=== PATIENT | male | born 1940 | race Caucasian/White ===

== ENCOUNTER 2024-03-29 09:03 | Emergency (ER) | payer MEDICARE, OTHER ==
[~2024-03-29] VITALS: Ht 175.3 cm; Wt 59.4 kg
[2024-03-29 09:15] VITALS: BP 164/76; TEMP 98
[2024-03-29] MEDS ORDERED: IBUPROFEN 600 MG TABLET ONE (09:28)
[2024-03-29] MEDS: IBUPROFEN 600 MG TABLET PO ONE (09:30)
[2024-03-29] MEDS ORDERED: NAPR-1009 PO (10:37)
[2024-03-29 11:31] VITALS: O2SAT 100
== END 2024-03-29 11:32 | disposition home or self-care (01) ==
LOC: ER 09:09
DX: M54.50 Low back pain, unspecified (principal); I10 Essential (primary) hypertension
CPT/HCPCS: 72100-TC

== ENCOUNTER 2024-05-19 09:16 | Emergency (ER) | payer MEDICARE, OTHER ==
[~2024-05-19] VITALS: Ht 182.9 cm; Wt 68.0 kg
[2024-05-19] MEDS ORDERED: HYDROCODONE/APAP 5/325MG TABLET ONE (10:01)
[2024-05-19] MEDS: HYDROCODONE/APAP 5/325MG TABLET PO ONE (10:05)
[2024-05-19 10:29] VITALS: BP 110/60; TEMP 98.4; O2SAT 98
== END 2024-05-19 10:30 | disposition home or self-care (01) ==
LOC: ER 09:20
DX: G89.29 Other chronic pain (principal); M54.50 Low back pain, unspecified; I10 Essential (primary) hypertension

== ENCOUNTER 2025-05-15 07:46 | Inpatient (IN) | payer MEDICARE, OTHER ==
[~2025-05-15] VITALS: Ht 167.6 cm; Wt 57.2 kg
[2025-05-15 08:12] LABS: PLATELET COUNT (AUTO) 211 K/uL (150-450); RED BLOOD CELL COUNT(AUTO) 4.69 MIL/uL (4.5-6.0); RED CELL DISTRIBUTION WIDTH 14.6 % (11.5-15.0); WHITE BLOOD COUNT (AUTO) 11.3 K/uL (4.3-11.0)
[2025-05-15 08:21] LABS: CALCIUM, SERUM 8.9 mg/dL (8.5-10.1); CREATININE 1.5 mg/dL (0.6-1.3); SODIUM SERUM 138 mmol/L (136-145); UREA NITROGEN, BLOOD 22 mg/dL (7-18)
[2025-05-15 08:27] LABS: ASPARTATE AMINOTRANSFERASE 28 U/L (15-37); TOTAL PROTEIN, SERUM 7.0 g/dL (6.4-8.2)
[2025-05-15 08:28] LABS: INR 1.35 (0.91-1.10)
[2025-05-15 08:31] LABS: LACTIC ACID 10.6 mmol/L (0.4-2.0)
[2025-05-15] MEDS ORDERED: ASPIRIN EC 325 MG TABLET.DR PO ONE (08:37)
[2025-05-15 08:42] LABS: ABG BASE EXCESS -0.4 mmol/L (-2.0-3.0); ABG OXYGEN SATURATION 95.5 % (94.0-98.0); ABG PCO2 39.2 mmHg (35.0-48.0); ABG PH 7.407 (7.350-7.450); ABG PO2 84.7 mmHg (83.0-108.0); ABG TOTAL HEMOGLOBIN 13.6 G/dL (13.5-17.5); FLOW, BLOOD GAS 4.00 L/min (0.00-30.00); FRACTIONATED INSPIRED OXYGEN 36.0 %; SITE, ABG RIGHT RADIAL
[2025-05-15] MEDS: CEFTRIAXONE 1 G in IV D5W 50 ML IV ONE (08:43)
[2025-05-15] MEDS: IV NS 0.9% 500 ML IV ONE (08:51)
[2025-05-15] MEDS: ASPIRIN 325 MG TABLET PO ONE (08:52)
[2025-05-15] MEDS ORDERED: CEFTRIAXONE 1GM BAG (ER ONLY) 1 GM/50 ML PIGGYBACK IV ONE (09:00)
[2025-05-15] MEDS ORDERED: ONDANSETRON HCL/PF 4 MG/2 ML VIAL IVP PRN (09:00)
[2025-05-15] MEDS ORDERED: CEFEPIME 1 GM in IV D5W 50 ML IV ONE (09:00)
[2025-05-15] MEDS ORDERED: AZITHROMYCIN 500 MG in IV D5W 250 ML IV SCH (09:00)
[2025-05-15 09:03] LABS: LYMPHOCYTES % (MANUAL) 11 % (16-48); MONOCYTES % (MANUAL) 8 % (0-11.0); NEUTROPHILS % (MANUAL) 81 (42-76); PLATELET ESTIMATE ADEQUATE
[2025-05-15] MEDS: AZITHROMYCIN 500 MG in IV D5W 250 ML IV ONE (09:15)
[2025-05-15] MEDS: IV NS 0.9% 1,000 ML IV SCH (10:19)
[2025-05-15] MEDS: HEPARIN SODIUM, PORCINE 5000 UNITS/1 ML VIAL SQ SCH (10:20)
[2025-05-15 12:00] VITALS: BP 105/51; TEMP 97.2; O2SAT 98
[2025-05-15 16:00] VITALS: BP 96/48; TEMP 97.9; O2SAT 95
[2025-05-15] MEDS: FUROSEMIDE 40 MG/4 ML VIAL IV SCH (16:00)
[2025-05-15] MEDS: IPRATROPIUM NEB FS 0.5 MG/2.5 ML AMPUL.NEB NEB SCH (18:50)
[2025-05-15] MEDS: ALBUTEROL FS 2.5 MG/3 ML VIAL.NEB NEB SCH (18:50)
[2025-05-15 20:00] VITALS: BP 151/68; TEMP 98.2; O2SAT 92
[2025-05-15 20:14] VITALS: O2SAT 93
[2025-05-15 20:28] VITALS: O2SAT 96
[2025-05-16] VITALS (14 sets, daily range): BP systolic 128–159; BP diastolic 71–83; TEMP 97.5–99; O2SAT 91–97
[2025-05-16 02:27] LABS: ABG BASE EXCESS 2.3 mmol/L (-2.0-3.0); ABG OXYGEN SATURATION 93.4 % (94.0-98.0); ABG PCO2 35.6 mmHg (35.0-48.0); ABG PH 7.475 (7.350-7.450); ABG PO2 65.3 mmHg (83.0-108.0); ABG TOTAL HEMOGLOBIN 14.1 G/dL (13.5-17.5); FLOW, BLOOD GAS 6.00 L/min (0.00-30.00); FRACTIONATED INSPIRED OXYGEN 44.0 %; SITE, ABG LEFT RADIAL
[2025-05-16] MEDS: AMIODARONE 150 MG in IV D5W 100 ML IV ONE (02:40)
[2025-05-16] MEDS: AMIODARONE 450 MG in IV D5W 241 ML IV PRN (03:03)
[2025-05-16 07:01] LABS: APPEARANCE,URINE CLEAR (CLEAR); BLOOD, URINE TRACE-INTA Ery/uL (NEGATIVE); LEUKOCYTE ESTERASE ,URINE NEGATIVE (NEGATIVE); NITRITE, URINE NEGATIVE (NEGATIVE); UGLUCOSE NEGATIVE (NEGATIVE)
[2025-05-16 07:02] LABS: ADD URINE CULTURE NO; SQUAMOUS EPITHELIAL CELL,UR Few /HPF (None Seen)
[2025-05-16 07:09] LABS: PLATELET COUNT (AUTO) 218 K/uL (150-450); RED BLOOD CELL COUNT(AUTO) 4.41 MIL/uL (4.5-6.0); RED CELL DISTRIBUTION WIDTH 14.1 % (11.5-15.0); WHITE BLOOD COUNT (AUTO) 12.5 K/uL (4.3-11.0)
[2025-05-16 07:28] LABS: ASPARTATE AMINOTRANSFERASE 23.0 U/L (15-37); CALCIUM, SERUM 8.5 mg/dL (8.5-10.1); CREATININE 0.7 mg/dL (0.6-1.3); PHOSPHORUS 3.0 mg/dL (2.5-4.9); SODIUM SERUM 140.0 mmol/L (136-145); TOTAL PROTEIN, SERUM 6.3 g/dL (6.4-8.2); UREA NITROGEN, BLOOD 19.0 mg/dL (7-18)
[2025-05-16] MEDS: POTASSIUM CHLORIDE 20 MEQ TAB.PRT.SR PO SCH (09:03)
[2025-05-16] MEDS: FUROSEMIDE 40 MG/4 ML VIAL IV SCH (09:03)
[2025-05-16] MEDS: CEFTRIAXONE 1 G in IV D5W 50 ML IV SCH (09:03)
[2025-05-16] MEDS: ZITHROMAX 500 MG/250 ML D5W IV SCH (10:02)
[2025-05-16] MEDS ORDERED: ALFU10TA10 PO (12:52)
[2025-05-16] MEDS ORDERED: LATA2.5D15 LEFTEYE (12:52)
[2025-05-16] MEDS ORDERED: OXYB15TA19 PO (12:52)
[2025-05-16] MEDS ORDERED: TELM40TA8 PO (12:52)
[2025-05-16] MEDS ORDERED: RIVA15TA PO (12:52)
[2025-05-16 13:42] LABS: CREATININE, URINE 14.0 MG/DL (30.0-125.0); URINE SODIUM, RANDOM 108.0 mmol/l (40-220); URINE TOTAL PROTEIN 14.7 mg/dL (0-11.9)
[2025-05-16 19:19] LABS: ABG BASE EXCESS 6.4 mmol/L (-2.0-3.0); ABG OXYGEN SATURATION 89.0 % (94.0-98.0); ABG PCO2 40.9 mmHg (35.0-48.0); ABG PH 7.488 (7.350-7.450); ABG PO2 53.9 mmHg (83.0-108.0); ABG TOTAL HEMOGLOBIN 14.4 G/dL (13.5-17.5); FLOW, BLOOD GAS 10.00 L/min (0.00-30.00); FRACTIONATED INSPIRED OXYGEN 60.0 %; SITE, ABG LEFT BRACHIAL
[2025-05-16] MEDS: hydrALAZINE HCL IV 20 MG VIAL IV PRN (21:48)
[2025-05-16] MEDS: FUROSEMIDE 40 MG/4 ML VIAL IV ONE (23:37)
[2025-05-17] VITALS (34 sets, daily range): BP systolic 112–176; BP diastolic 55–103; TEMP 97.5–98.4; O2SAT 88–99
[2025-05-17 07:44] LABS: PLATELET COUNT (AUTO) 257 K/uL (150-450); RED BLOOD CELL COUNT(AUTO) 4.93 MIL/uL (4.5-6.0); RED CELL DISTRIBUTION WIDTH 14.2 % (11.5-15.0); WHITE BLOOD COUNT (AUTO) 15.8 K/uL (4.3-11.0)
[2025-05-17 07:46] LABS: ABG BASE EXCESS 8.2 mmol/L (-2.0-3.0); ABG OXYGEN SATURATION 97.9 % (94.0-98.0); ABG PCO2 45.3 mmHg (35.0-48.0); ABG PH 7.479 (7.350-7.450); ABG PO2 103.4 mmHg (83.0-108.0); ABG TOTAL HEMOGLOBIN 14.9 G/dL (13.5-17.5); FLOW, BLOOD GAS 15.00 L/min (0.00-30.00); FRACTIONATED INSPIRED OXYGEN 100.0 %; SITE, ABG RIGHT RADIAL
[2025-05-17 08:14] LABS: ASPARTATE AMINOTRANSFERASE 24.0 U/L (15-37); CALCIUM, SERUM 9.1 mg/dL (8.5-10.1); CREATININE 0.8 mg/dL (0.6-1.3); PHOSPHORUS 3.0 mg/dL (2.5-4.9); SODIUM SERUM 138.0 mmol/L (136-145); TOTAL PROTEIN, SERUM 7.1 g/dL (6.4-8.2); UREA NITROGEN, BLOOD 16.0 mg/dL (7-18)
[2025-05-17] MEDS: AMIODARONE HCL 200 MG TABLET PO SCH (09:48)
[2025-05-17] MEDS: ENOXAPARIN SODIUM 60 MG/0.6 ML DISP.SYRIN SQ SCH (11:47)
[2025-05-17] MEDS ORDERED: DOSING PER PHARMACY-CEFEPIME IVPB IV PRN (17:30)
[2025-05-17] MEDS ORDERED: DOSING PER PHARMACY-VANCOMYCIN IV IV PRN (17:30)
[2025-05-17] MEDS: VANCOMYCIN 1 GM in IV D5W 250ml IV ONE (20:01)
[2025-05-17] MEDS: CEFEPIME 2 GM in IV D5W 100 ML IV SCH (21:30)
[2025-05-17] MEDS: ZOLPIDEM TARTRATE 10 MG TABLET PO SCH (22:00)
[2025-05-17] MEDS: MORPHINE SULFATE INJ 2 MG/ML DISP.SYRIN IV PRN (22:06)
[2025-05-18] VITALS (40 sets, daily range): BP systolic 106–168; BP diastolic 52–78; TEMP 97.7–99.3; O2SAT 92–98
[2025-05-18] MEDS: ZOLPIDEM TARTRATE 10 MG TABLET ONE (00:39)
[2025-05-18 04:57] LABS: CALCIUM, SERUM 8.7 mg/dL (8.5-10.1); CREATININE 0.7 mg/dL (0.6-1.3); SODIUM SERUM 133 mmol/L (136-145); UREA NITROGEN, BLOOD 19 mg/dL (7-18)
[2025-05-18 05:03] LABS: LACTIC ACID 1.2 mmol/L (0.4-2.0)
[2025-05-18 05:09] LABS: ASPARTATE AMINOTRANSFERASE 19 U/L (15-37); NT-PRO BNP 3179 pg/mL (0-125); PHOSPHORUS 2.7 mg/dL (2.5-4.9); TOTAL PROTEIN, SERUM 6.2 g/dL (6.4-8.2)
[2025-05-18] MEDS: ALBUTEROL FS 2.5 MG/0.5 ML VIAL.NEB NEB PRN (07:28)
[2025-05-18 07:58] LABS: PLATELET COUNT (AUTO) 245 K/uL (150-450); RED BLOOD CELL COUNT(AUTO) 4.54 MIL/uL (4.5-6.0); RED CELL DISTRIBUTION WIDTH 14.5 % (11.5-15.0); WHITE BLOOD COUNT (AUTO) 14.3 K/uL (4.3-11.0)
[2025-05-18] MEDS: VANCOMYCIN 750 MG in IV D5W 250 ML IV SCH (08:34)
[2025-05-18] MEDS ORDERED: DIATR MEGLU/DIATRIZOATE SODIUM 120 ML BOTTLE (GASTROGRAPHIN) ONE (10:56)
[2025-05-18 16:20] LABS: HIV-1/2 ANTIBODY NON REACTIVE (NONREACTIVE)
[2025-05-18] MEDS: ZOLPIDEM TARTRATE 5 MG TABLET PO SCH (22:14)
[2025-05-19] VITALS (39 sets, daily range): BP systolic 118–149; BP diastolic 55–78; TEMP 97.5–97.8; O2SAT 94–98
[2025-05-19 04:34] LABS: PLATELET COUNT (AUTO) 239 K/uL (150-450); RED BLOOD CELL COUNT(AUTO) 4.88 MIL/uL (4.5-6.0); RED CELL DISTRIBUTION WIDTH 14.0 % (11.5-15.0); WHITE BLOOD COUNT (AUTO) 15.7 K/uL (4.3-11.0)
[2025-05-19 04:56] LABS: ASPARTATE AMINOTRANSFERASE 40.0 U/L (15-37); CALCIUM, SERUM 8.9 mg/dL (8.5-10.1); CREATININE 0.7 mg/dL (0.6-1.3); SODIUM SERUM 130.0 mmol/L (136-145); TOTAL PROTEIN, SERUM 6.7 g/dL (6.4-8.2); UREA NITROGEN, BLOOD 24.0 mg/dL (7-18)
[2025-05-19] MEDS: BISACODYL SUPP (10 MG) 10 MG/SUPP.RECT SUPP.RECT RC PRN (11:57)
[2025-05-19] MEDS: FUROSEMIDE 20 MG/2 ML VIAL IV SCH (11:57)
[2025-05-20] VITALS (40 sets, daily range): BP systolic 123–166; BP diastolic 62–81; TEMP 97.5–97.8; O2SAT 92–100
[2025-05-20 04:23] LABS: PLATELET COUNT (AUTO) 248 K/uL (150-450); RED BLOOD CELL COUNT(AUTO) 4.88 MIL/uL (4.5-6.0); RED CELL DISTRIBUTION WIDTH 14.5 % (11.5-15.0); WHITE BLOOD COUNT (AUTO) 17.2 K/uL (4.3-11.0)
[2025-05-20 04:49] LABS: ASPARTATE AMINOTRANSFERASE 25.0 U/L (15-37); CALCIUM, SERUM 8.9 mg/dL (8.5-10.1); CREATININE 0.8 mg/dL (0.6-1.3); PHOSPHORUS 3.3 mg/dL (2.5-4.9); SODIUM SERUM 132.0 mmol/L (136-145); TOTAL PROTEIN, SERUM 6.6 g/dL (6.4-8.2); UREA NITROGEN, BLOOD 33.0 mg/dL (7-18)
[2025-05-20 13:07] LABS: *ANA ANTI-CENTROMERE B AB <0.2 AI (0.0-0.9); *ANA ANTI-DNA(DS) AB, QN <1 IU/mL (0-9); *ANA ANTI-JO-1 <0.2 AI (0.0-0.9); *ANA ANTICHROMATIN ANTIBODY <0.2 AI (0.0-0.9); *ANA RNP ANTIBODIES <0.2 AI (0.0-0.9); *ANA SJOGREN'S ANTI-SS-A <0.2 AI (0.0-0.9); *ANA SJOGREN'S ANTI-SS-B <0.2 AI (0.0-0.9); *ANAANTI-SCLERODERMA-70 AB 0.4 AI (0.0-0.9); *ANASMITH AB <0.2 AI (0.0-0.9)
[2025-05-20] MEDS: AZITHROMYCIN 500 MG in IV D5W 250 ML IV SCH (16:38)
[2025-05-20] MEDS: JEVITY 1.2 CAL 1,000 ML BOTTLE GT PRN (17:06)
[2025-05-20] MEDS ORDERED: IOHEXOL-350 100 ML VIAL IV ONE (18:45)
[2025-05-20 19:38] LABS: PLATELET COUNT (AUTO) 267 K/uL (150-450); RED BLOOD CELL COUNT(AUTO) 4.75 MIL/uL (4.5-6.0); RED CELL DISTRIBUTION WIDTH 14.1 % (11.5-15.0); WHITE BLOOD COUNT (AUTO) 19.5 K/uL (4.3-11.0)
[2025-05-20 19:54] LABS: INR 1.13 (0.91-1.10)
[2025-05-20 19:56] LABS: CALCIUM, SERUM 8.6 mg/dL (8.5-10.1); CREATININE 0.8 mg/dL (0.6-1.3); SODIUM SERUM 131 mmol/L (136-145); UREA NITROGEN, BLOOD 34 mg/dL (7-18)
[2025-05-20] MEDS: ASPIRIN 325 MG TABLET NG ONE (20:10)
[2025-05-20] MEDS: FREE WATER VIA TUBE FEEDING GT SCH (21:03)
[2025-05-20 21:20] LABS: LYMPHOCYTES % (MANUAL) 7 % (16-48); MONOCYTES % (MANUAL) 9 % (0-11.0); NEUTROPHILS % (MANUAL) 84 (42-76); PLATELET ESTIMATE ADEQUATE
[2025-05-20] MEDS: AMIODARONE 150 MG/3 ML VIAL IV ONE ×2 (22:56→22:57)
[2025-05-21] VITALS (37 sets, daily range): BP systolic 149–175; BP diastolic 62–95; TEMP 97–97.9; O2SAT 91–100
[2025-05-21 04:44] LABS: PLATELET COUNT (AUTO) 285 K/uL (150-450); RED BLOOD CELL COUNT(AUTO) 4.85 MIL/uL (4.5-6.0); RED CELL DISTRIBUTION WIDTH 14.1 % (11.5-15.0); WHITE BLOOD COUNT (AUTO) 19.5 K/uL (4.3-11.0)
[2025-05-21 05:01] LABS: CALCIUM, SERUM 9.3 mg/dL (8.5-10.1); CREATININE 0.8 mg/dL (0.6-1.3); SODIUM SERUM 130.0 mmol/L (136-145); UREA NITROGEN, BLOOD 33.0 mg/dL (7-18)
[2025-05-21 05:07] LABS: LDL 77 mg/dL (0-99)
[2025-05-21 05:44] LABS: LYMPHOCYTES % (MANUAL) 3 % (16-48); MONOCYTES % (MANUAL) 12 % (0-11.0); NEUTROPHILS % (MANUAL) 85 (42-76)
[2025-05-21 05:50] LABS: PLATELET ESTIMATE ADEQUATE
[2025-05-21] MEDS: ASPIRIN 81 MG TAB.CHEW NG SCH (08:18)
[2025-05-21 09:38] LABS: ABG BASE EXCESS 7.7 mmol/L (-2.0-3.0); ABG OXYGEN SATURATION 98.6 % (94.0-98.0); ABG PCO2 48.6 mmHg (35.0-48.0); ABG PH 7.450 (7.350-7.450); ABG PO2 140.6 mmHg (83.0-108.0); ABG TOTAL HEMOGLOBIN 14.4 G/dL (13.5-17.5); FLOW, BLOOD GAS 40.00 L/min (0.00-30.00); FRACTIONATED INSPIRED OXYGEN 80.0 %; SITE, ABG RIGHT RADIAL
[2025-05-21] MEDS: VANCOMYCIN 750 MG in IV D5W 250 ML IV SCH (12:28)
[2025-05-21 15:07] LABS: ASPERGILLUS GAL. Ag, SERUM/BAL 0.06 Index (0.00-0.49)
[2025-05-21] MEDS ORDERED: DIATR MEGLU/DIATRIZOATE SODIUM 120 ML BOTTLE (GASTROGRAPHIN) ONE (16:15)
[2025-05-21] MEDS ORDERED: IOHEXOL-300 100 ML VIAL IV ONE (18:40)
[2025-05-21] MEDS ORDERED: IV NS 0.9% 250 ML IV ONE (18:40)
[2025-05-21] MEDS: APIXABAN 5 MG TABLET PO SCH (22:14)
[2025-05-22] VITALS (37 sets, daily range): BP systolic 108–179; BP diastolic 61–90; TEMP 98–98.8; O2SAT 91–99
[2025-05-22] MEDS: CLONIDINE HCL 0.1 MG TABLET PO PRN (03:40)
[2025-05-22 05:25] LABS: PLATELET COUNT (AUTO) 244 K/uL (150-450); RED BLOOD CELL COUNT(AUTO) 4.94 MIL/uL (4.5-6.0); RED CELL DISTRIBUTION WIDTH 14.1 % (11.5-15.0); WHITE BLOOD COUNT (AUTO) 19.5 K/uL (4.3-11.0)
[2025-05-22 05:50] LABS: CALCIUM, SERUM 8.6 mg/dL (8.5-10.1); CREATININE 0.6 mg/dL (0.6-1.3); SODIUM SERUM 135.0 mmol/L (136-145); UREA NITROGEN, BLOOD 28.0 mg/dL (7-18)
[2025-05-22] MEDS: LOSARTAN POTASSIUM 50 MG TABLET PO SCH (08:47)
[2025-05-22] MEDS: CEFEPIME 2 GM in IV D5W 100 ML IV SCH (15:32)
[2025-05-22 18:56] LABS: RHEUMATOID FACTOR SCREEN NEGATIVE (NEGATIVE)
[2025-05-22] MEDS: hydrALAZINE HCL IV 20 MG VIAL IV PRN (23:14)
[2025-05-23] VITALS (38 sets, daily range): BP systolic 134–175; BP diastolic 48–89; TEMP 97–98.2; O2SAT 92–99
[2025-05-23 00:05] LABS: ABG BASE EXCESS 5.6 mmol/L (-2.0-3.0); ABG OXYGEN SATURATION 93.9 % (94.0-98.0); ABG PCO2 35.9 mmHg (35.0-48.0); ABG PH 7.517 (7.350-7.450); ABG PO2 71.7 mmHg (83.0-108.0); ABG TOTAL HEMOGLOBIN 15.0 G/dL (13.5-17.5); FLOW, BLOOD GAS 40.00 L/min (0.00-30.00); FRACTIONATED INSPIRED OXYGEN 100.0 %; SITE, ABG RIGHT RADIAL
[2025-05-23 04:07] LABS: PLATELET COUNT (AUTO) 238 K/uL (150-450); RED BLOOD CELL COUNT(AUTO) 5.01 MIL/uL (4.5-6.0); RED CELL DISTRIBUTION WIDTH 14.3 % (11.5-15.0); WHITE BLOOD COUNT (AUTO) 24.1 K/uL (4.3-11.0)
[2025-05-23 04:18] LABS: CALCIUM, SERUM 9.0 mg/dL (8.5-10.1); CREATININE 0.8 mg/dL (0.6-1.3); PHOSPHORUS 2.9 mg/dL (2.5-4.9); SODIUM SERUM 136.0 mmol/L (136-145); UREA NITROGEN, BLOOD 30.0 mg/dL (7-18)
[2025-05-23] MEDS: PANTOPRAZOLE 40 MG/PACK PACK GT SCH (08:23)
[2025-05-23] MEDS ORDERED: RIVAROXABAN 15 MG TABLET PO SCH (09:00)
[2025-05-23] MEDS: OXYBUTYNIN CHLORIDE ER 5 MG TAB PO SCH (09:00)
[2025-05-23] MEDS ORDERED: LOSARTAN POTASSIUM 50 MG TABLET PO SCH (09:00)
[2025-05-23] MEDS ORDERED: TRAZODONE 50 MG TABLET PO PRN (10:30)
[2025-05-23] MEDS: FUROSEMIDE 20 MG/2 ML VIAL IV ONE (11:42)
[2025-05-23] MEDS: DOXYCYCLINE 100 MG in IV D5W 100 ML IV SCH (15:55)
[2025-05-23] MEDS: APIXABAN 5 MG TABLET PO SCH (21:03)
[2025-05-23] MEDS: LATANOPROST EYE DROP 0.005% 2.5 ML BOTTLE LEFTEYE SCH (21:14)
[2025-05-24] VITALS (39 sets, daily range): BP systolic 136–177; BP diastolic 64–88; TEMP 97.2–97.8; O2SAT 5–99
[2025-05-24 03:53] LABS: PLATELET COUNT (AUTO) 263 K/uL (150-450); RED BLOOD CELL COUNT(AUTO) 4.82 MIL/uL (4.5-6.0); RED CELL DISTRIBUTION WIDTH 14.2 % (11.5-15.0); WHITE BLOOD COUNT (AUTO) 24.7 K/uL (4.3-11.0)
[2025-05-24 04:03] LABS: ASPARTATE AMINOTRANSFERASE 27.0 U/L (15-37); CALCIUM, SERUM 9.4 mg/dL (8.5-10.1); CREATININE 0.8 mg/dL (0.6-1.3); PHOSPHORUS 3.2 mg/dL (2.5-4.9); SODIUM SERUM 138.0 mmol/L (136-145); TOTAL PROTEIN, SERUM 6.7 g/dL (6.4-8.2); UREA NITROGEN, BLOOD 45.0 mg/dL (7-18)
[2025-05-24 05:10] LABS: LYMPHOCYTES % (MANUAL) 2 % (16-48); MONOCYTES % (MANUAL) 4 % (0-11.0); NEUTROPHILS % (MANUAL) 94 (42-76)
[2025-05-24 05:13] LABS: PLATELET ESTIMATE ADEQUATE
[2025-05-24] MEDS: FUROSEMIDE 20 MG/2 ML VIAL IV SCH (08:17)
[2025-05-24] MEDS: ACETYLCYSTEINE 20% SOLN 800 MG/4 ML VIAL NEB SCH (15:30)
[2025-05-25] VITALS (40 sets, daily range): BP systolic 87–163; BP diastolic 56–80; TEMP 96.8–98.6; O2SAT 93–100
[2025-05-25 03:48] LABS: PLATELET COUNT (AUTO) 269 K/uL (150-450); RED BLOOD CELL COUNT(AUTO) 4.80 MIL/uL (4.5-6.0); RED CELL DISTRIBUTION WIDTH 14.7 % (11.5-15.0)
[2025-05-25 04:35] LABS: WHITE BLOOD COUNT (AUTO) 33.2 K/uL (4.3-11.0)
[2025-05-25 05:23] LABS: BASOPHILS % (MANUAL) 0 % (0.0-2.0); EOSINOPHILS % (MANUAL) 0 % (0-4); LYMPHOCYTES % (MANUAL) 3 % (16-48); MONOCYTES % (MANUAL) 5 % (0-11.0); NEUTROPHILS % (MANUAL) 92 (42-76)
[2025-05-25 05:24] LABS: PLATELET ESTIMATE ADEQUATE
[2025-05-25] MEDS ORDERED: DILTIAZEM HCL IV 125 MG in IV NS 0.9% 100 ML IV PRN ×2 (10:30→12:00)
[2025-05-25] MEDS: METOPROLOL TARTRATE INJ 5 MG/5 ML AMPUL IVP PRN (10:51)
[2025-05-25] MEDS ORDERED: PHENYLEPHRINE 50 MG in IV NS 0.9% 245 ML IV PRN ×2 (12:00→13:00)
[2025-05-25 13:05] LABS: ASPARTATE AMINOTRANSFERASE 25.0 U/L (15-37); CALCIUM, SERUM 9.3 mg/dL (8.5-10.1); CREATININE 1.1 mg/dL (0.6-1.3); PHOSPHORUS 4.2 mg/dL (2.5-4.9); SODIUM SERUM 142.0 mmol/L (136-145); TOTAL PROTEIN, SERUM 6.5 g/dL (6.4-8.2); UREA NITROGEN, BLOOD 69.0 mg/dL (7-18)
[2025-05-25 13:22] LABS: PLATELET COUNT (AUTO) 281 K/uL (150-450); RED BLOOD CELL COUNT(AUTO) 4.65 MIL/uL (4.5-6.0); RED CELL DISTRIBUTION WIDTH 14.7 % (11.5-15.0)
[2025-05-25 13:26] LABS: WHITE BLOOD COUNT (AUTO) 36.3 K/uL (4.3-11.0)
[2025-05-25] MEDS ORDERED: ALBUMIN 5% 25 GM in PREMIX 1 EA IV ONE (13:30)
[2025-05-25] MEDS ORDERED: ALBUMIN 25% 12.5 GM/50 ML BOTTLE IV ONE (14:00)
[2025-05-25 15:29] LABS: LYMPHOCYTES % (MANUAL) 2 % (16-48); MONOCYTES % (MANUAL) 6 % (0-11.0); NEUTROPHILS % (MANUAL) 92 (42-76); PLATELET ESTIMATE DECREASED
[2025-05-25] MEDS ORDERED: METOPROLOL TARTRATE 25 MG TABLET PO SCH (17:00)
[2025-05-25] MEDS: METOPROLOL TARTRATE 25 MG TABLET PO SCH (20:20)
[2025-05-26] VITALS (38 sets, daily range): BP systolic 107–169; BP diastolic 55–87; TEMP 97.6–98.2; O2SAT 93–100
[2025-05-26 04:26] LABS: PLATELET COUNT (AUTO) 282 K/uL (150-450); RED BLOOD CELL COUNT(AUTO) 4.79 MIL/uL (4.5-6.0); RED CELL DISTRIBUTION WIDTH 14.7 % (11.5-15.0)
[2025-05-26 04:44] LABS: WHITE BLOOD COUNT (AUTO) 33.8 K/uL (4.3-11.0)
[2025-05-26 04:45] LABS: ASPARTATE AMINOTRANSFERASE 27.0 U/L (15-37); CALCIUM, SERUM 9.5 mg/dL (8.5-10.1); CREATININE 1.0 mg/dL (0.6-1.3); PHOSPHORUS 4.2 mg/dL (2.5-4.9); SODIUM SERUM 144.0 mmol/L (136-145); TOTAL PROTEIN, SERUM 6.9 g/dL (6.4-8.2)
[2025-05-26 04:54] LABS: UREA NITROGEN, BLOOD 84.0 mg/dL (7-18)
[2025-05-26 06:27] LABS: BASOPHILS % (MANUAL) 0 % (0.0-2.0); EOSINOPHILS % (MANUAL) 0 % (0-4); LYMPHOCYTES % (MANUAL) 3 % (16-48); MONOCYTES % (MANUAL) 4 % (0-11.0); NEUTROPHILS % (MANUAL) 93 (42-76); PLATELET ESTIMATE ADEQUATE
[2025-05-26] MEDS ORDERED: MEROPENEM 500 MG in IV NS 0.9% 50 ML IV SCH (10:30)
[2025-05-26] MEDS: MEROPENEM 1 G in IV NS 0.9% 100 ML IV SCH (11:59)
[2025-05-26] MEDS: LEVALBUTEROL HCL NEB 1.25 MG/0.5 ML VIAL.NEB NEB SCH (13:31)
[2025-05-26 18:01] LABS: ABG BASE EXCESS -7.1 mmol/L (-2.0-3.0); ABG OXYGEN SATURATION 88.1 % (94.0-98.0); ABG PCO2 34.3 mmHg (35.0-48.0); ABG PH 7.336 (7.350-7.450); ABG PO2 63.2 mmHg (83.0-108.0); ABG TOTAL HEMOGLOBIN 9.6 G/dL (13.5-17.5); FRACTIONATED INSPIRED OXYGEN 100.0 %; SET RATE, BG 16.0; SITE, ABG RIGHT RADIAL
[2025-05-26] MEDS: GLUCERNA 1.2 1,000 ML BOTTLE NG PRN (18:15)
[2025-05-26] MEDS ORDERED: CEFEPIME 2 GM in IV D5W 100 ML IV SCH (20:00)
[2025-05-26] MEDS: ACETAMINOPHEN 325 MG TABLET PO PRN (22:17)
[2025-05-26] MEDS: ACETAMINOPHEN 650 MG/20.3 ML UDC NG PRN (22:36)
[2025-05-27] VITALS (75 sets, daily range): BP systolic 64–138; BP diastolic 36–70; TEMP 97.5–98.4; O2SAT 95–100
[2025-05-27 02:01] LABS: ABG BASE EXCESS 0.6 mmol/L (-2.0-3.0); ABG OXYGEN SATURATION 96.4 % (94.0-98.0); ABG PCO2 139.1 mmHg (35.0-48.0); ABG PH 7.033 (7.350-7.450); ABG PO2 115.6 mmHg (83.0-108.0); ABG TOTAL HEMOGLOBIN 14.9 G/dL (13.5-17.5); FLOW, BLOOD GAS 40.00 L/min (0.00-30.00); FRACTIONATED INSPIRED OXYGEN 80.0 %; SITE, ABG RIGHT RADIAL
[2025-05-27] MEDS: NOREPINEPHRINE 8MG/250ML RTU 250 ML IV ONE (02:20)
[2025-05-27] MEDS: NOREPINEPHRINE 8 MG in IV D5W 242 ML IV PRN (02:22)
[2025-05-27 03:22] LABS: ABG BASE EXCESS -4.6 mmol/L (-2.0-3.0); ABG OXYGEN SATURATION 99.5 % (94.0-98.0); ABG PCO2 82.2 mmHg (35.0-48.0); ABG PH 7.131 (7.350-7.450); ABG PO2 382.1 mmHg (83.0-108.0); ABG TOTAL HEMOGLOBIN 14.8 G/dL (13.5-17.5); FRACTIONATED INSPIRED OXYGEN 100.0 %; SET RATE, BG 20.0; SITE, ABG RIGHT RADIAL; VT, ABG 450 mL
[2025-05-27 04:35] LABS: PLATELET COUNT (AUTO) 289 K/uL (150-450); RED BLOOD CELL COUNT(AUTO) 5.04 MIL/uL (4.5-6.0); RED CELL DISTRIBUTION WIDTH 15.6 % (11.5-15.0)
[2025-05-27 04:56] LABS: WHITE BLOOD COUNT (AUTO) 42.7 K/uL (4.3-11.0)
[2025-05-27 05:11] LABS: ASPARTATE AMINOTRANSFERASE 36.0 U/L (15-37); CALCIUM, SERUM 9.4 mg/dL (8.5-10.1); CREATININE 1.9 mg/dL (0.6-1.3); SODIUM SERUM 145.0 mmol/L (136-145); TOTAL PROTEIN, SERUM 7.0 g/dL (6.4-8.2)
[2025-05-27 05:31] LABS: PHOSPHORUS 8.6 mg/dL (2.5-4.9); UREA NITROGEN, BLOOD 116.0 mg/dL (7-18)
[2025-05-27 05:37] LABS: BAND % (MANUAL) 1 % (0.0-5.0); LYMPHOCYTES % (MANUAL) 4 % (16-48); MONOCYTES % (MANUAL) 5 % (0-11.0); NEUTROPHILS % (MANUAL) 90 (42-76); PLATELET ESTIMATE ADEQUATE
[2025-05-27 05:44] LABS: ABG BASE EXCESS -0.4 mmol/L (-2.0-3.0); ABG OXYGEN SATURATION 96.4 % (94.0-98.0); ABG PCO2 54.3 mmHg (35.0-48.0); ABG PH 7.312 (7.350-7.450); ABG PO2 88.0 mmHg (83.0-108.0); ABG TOTAL HEMOGLOBIN 14.9 G/dL (13.5-17.5); FRACTIONATED INSPIRED OXYGEN 60.0 %; SET RATE, BG 22.0; SITE, ABG PL; VT, ABG 550 mL
[2025-05-27] MEDS: Calcium Gluconate 0.465 MEQ/ML VIAL IV ONE (06:57)
[2025-05-27] MEDS: DEXTROSE 50%-WATER 50 ML DISP.SYRIN IVP ONE (06:57)
[2025-05-27] MEDS: INSULIN REGULAR, HUMAN 100 UNIT/ML 10 ML VIAL IV ONE (06:59)
[2025-05-27] MEDS: PROPOFOL 100 ML IV PRN (07:32)
[2025-05-27] MEDS: PHENYLEPHRINE 50 MG in IV NS 0.9% 245 ML IV PRN (08:00)
[2025-05-27] MEDS ORDERED: ROCURONIUM BROMIDE 50 MG/5 ML IV ONE (11:18)
[2025-05-27] MEDS: SODIUM ZIRCONIUM CYCLOSILICATE 5 GM POWD.PACK PO ONE (11:30)
[2025-05-27] MEDS ORDERED: DOSING PER PHARMACY-VANCOMYCIN IV XX PRN (12:00)
[2025-05-27] MEDS ORDERED: VASOPRESSIN INJ 40 UNIT in IV NS 0.9% 38 ML IV PRN (12:00)
[2025-05-27] MEDS: BUMETANIDE INJ 6 MG in IV NS 0.9% 36 ML IV ONE (12:32)
[2025-05-27] MEDS: SODIUM ZIRCONIUM CYCLOSILICATE 10 GM POWD.PACK PO ONE (12:44)
[2025-05-27 12:56] LABS: CREATININE, URINE 52.0 MG/DL (30.0-125.0); URINE SODIUM, RANDOM 20.0 mmol/l (40-220); URINE TOTAL PROTEIN 70.6 mg/dL (0-11.9)
[2025-05-27 13:08] LABS: APPEARANCE,URINE CLEAR (CLEAR); BLOOD, URINE TRACE-INTA Ery/uL (NEGATIVE); LEUKOCYTE ESTERASE ,URINE NEGATIVE (NEGATIVE); NITRITE, URINE POSITIVE (NEGATIVE); UGLUCOSE NEGATIVE (NEGATIVE)
[2025-05-27 13:18] LABS: ADD URINE CULTURE YES; SQUAMOUS EPITHELIAL CELL,UR 0-2 /HPF (None Seen)
[2025-05-27 13:38] LABS: ABG BASE EXCESS -2.1 mmol/L (-2.0-3.0); ABG OXYGEN SATURATION 96.6 % (94.0-98.0); ABG PCO2 60.5 mmHg (35.0-48.0); ABG PH 7.255 (7.350-7.450); ABG PO2 97.1 mmHg (83.0-108.0); ABG TOTAL HEMOGLOBIN 14.2 G/dL (13.5-17.5); FRACTIONATED INSPIRED OXYGEN 60.0 %; PEEP,BG 5 cm H2O; SET RATE, BG 32.0; SITE, ABG RIGHT RADIAL; VT, ABG 400 mL
[2025-05-27] MEDS: FENTANYL CITRAT IV 2,500 MCG in IV NS 0.9% 200 ML IV PRN (13:54)
[2025-05-27 14:01] LABS: EOSINOPHIL,URINE None Seen
[2025-05-27 16:46] LABS: CALCIUM, SERUM 9.2 mg/dL (8.5-10.1); CREATININE 2.7 mg/dL (0.6-1.3); SODIUM SERUM 146.0 mmol/L (136-145)
[2025-05-27 16:50] LABS: UREA NITROGEN, BLOOD 139.0 mg/dL (7-18)
[2025-05-28] VITALS (94 sets, daily range): BP systolic 82–130; BP diastolic 35–95; TEMP 97.7–98; O2SAT 65–100
[2025-05-28 05:04] LABS: CREATINE KINASE, TOTAL 277.0 U/L (39-308)
[2025-05-28 05:30] LABS: PLATELET COUNT (AUTO) 246 K/uL (150-450); RED BLOOD CELL COUNT(AUTO) 4.59 MIL/uL (4.5-6.0); RED CELL DISTRIBUTION WIDTH 15.7 % (11.5-15.0)
[2025-05-28 05:31] LABS: WHITE BLOOD COUNT (AUTO) 42.8 K/uL (4.3-11.0)
[2025-05-28 05:47] LABS: NEUTROPHILS % (MANUAL) 94 (42-76)
[2025-05-28 05:48] LABS: LYMPHOCYTES % (MANUAL) 2 % (16-48); MONOCYTES % (MANUAL) 4 % (0-11.0); PLATELET ESTIMATE ADEQUATE
[2025-05-28 08:13] LABS: ABG BASE EXCESS -1.2 mmol/L (-2.0-3.0); ABG OXYGEN SATURATION 96.8 % (94.0-98.0); ABG PCO2 77.2 mmHg (35.0-48.0); ABG PH 7.193 (7.350-7.450); ABG PO2 101.4 mmHg (83.0-108.0); ABG TOTAL HEMOGLOBIN 13.9 G/dL (13.5-17.5); PEEP,BG 5 cm H2O; SET RATE, BG 32.0; SITE, ABG RIGHT RADIAL; VT, ABG 400 mL
[2025-05-28] MEDS: APIXABAN 5 MG TABLET PO SCH (09:53)
[2025-05-28] MEDS: PANTOPRAZOLE 40 MG VIAL IV SCH (11:47)
[2025-05-28 12:39] LABS: ASPARTATE AMINOTRANSFERASE 38.0 U/L (15-37); CALCIUM, SERUM 8.5 mg/dL (8.5-10.1); CREATININE 3.5 mg/dL (0.6-1.3); SODIUM SERUM 147.0 mmol/L (136-145); TOTAL PROTEIN, SERUM 6.0 g/dL (6.4-8.2)
[2025-05-28 13:04] LABS: PHOSPHORUS 9.2 mg/dL (2.5-4.9)
[2025-05-28] MEDS: SODIUM BICARBONATE SYR 50 MEQ/50 ML DISP.SYRIN IV ONE (14:11)
[2025-05-28] MEDS: DEXTROSE 50%-WATER 50 ML DISP.SYRIN IVP ONE (14:11)
[2025-05-28] MEDS: INSULIN REGULAR, HUMAN 100 UNIT/ML 10 ML VIAL IV ONE (14:13)
[2025-05-28 15:39] LABS: ABG BASE EXCESS -4.9 mmol/L (-2.0-3.0); ABG OXYGEN SATURATION 93.3 % (94.0-98.0); ABG PCO2 58.8 mmHg (35.0-48.0); ABG PH 7.221 (7.350-7.450); ABG PO2 77.1 mmHg (83.0-108.0); ABG TOTAL HEMOGLOBIN 13.2 G/dL (13.5-17.5); FRACTIONATED INSPIRED OXYGEN 50.0 %; PEEP,BG 5 cm H2O; SET RATE, BG 32.0; SITE, ABG LEFT RADIAL; VT, ABG 450 mL
[2025-05-29] VITALS (96 sets, daily range): BP systolic 77–148; BP diastolic 39–96; TEMP 97.4–99; O2SAT 87–100
[2025-05-29 05:48] LABS: PLATELET COUNT (AUTO) 232 K/uL (150-450); RED BLOOD CELL COUNT(AUTO) 4.66 MIL/uL (4.5-6.0); RED CELL DISTRIBUTION WIDTH 15.3 % (11.5-15.0)
[2025-05-29 06:10] LABS: WHITE BLOOD COUNT (AUTO) 48.7 K/uL (4.3-11.0)
[2025-05-29 06:29] LABS: LYMPHOCYTES % (MANUAL) 2 % (16-48); MONOCYTES % (MANUAL) 1 % (0-11.0); NEUTROPHILS % (MANUAL) 97 (42-76)
[2025-05-29 06:30] LABS: PLATELET ESTIMATE DECREASED
[2025-05-29] MEDS ORDERED: Calcium Gluconate 0.465 MEQ/ML VIAL IV ONE (06:30)
[2025-05-29] MEDS: DILTIAZEM HCL 50 MG IV IV ONE (06:36)
[2025-05-29] MEDS: DEXTROSE 50%-WATER 50 ML DISP.SYRIN IVP ONE (06:43)
[2025-05-29] MEDS: INSULIN REGULAR, HUMAN 100 UNIT/ML 10 ML VIAL IV ONE (06:45)
[2025-05-29] MEDS: Calcium Gluconate 1GM/10ML 4.65 MEQ in IV NS 0.9% 100 ML IV ONE (06:59)
[2025-05-29 08:12] LABS: ABG BASE EXCESS -5.1 mmol/L (-2.0-3.0); ABG OXYGEN SATURATION 91.6 % (94.0-98.0); ABG PCO2 57.7 mmHg (35.0-48.0); ABG PH 7.222 (7.350-7.450); ABG PO2 72.8 mmHg (83.0-108.0); ABG TOTAL HEMOGLOBIN 13.0 G/dL (13.5-17.5); FRACTIONATED INSPIRED OXYGEN 50.0 %; PEEP,BG 5 cm H2O; SET RATE, BG 32.0; SITE, ABG RIGHT RADIAL; VT, ABG 475 mL
[2025-05-29 09:41] LABS: SODIUM SERUM 144 mmol/L (136-145)
[2025-05-29 09:42] LABS: CALCIUM, SERUM 8.3 mg/dL (8.5-10.1); CREATININE 4.3 mg/dL (0.6-1.3)
[2025-05-29 09:44] LABS: UREA NITROGEN, BLOOD 211 mg/dL (7-18)
[2025-05-29 09:45] LABS: PHOSPHORUS 9.3 mg/dL (2.5-4.9)
[2025-05-29] MEDS ORDERED: DOSE PER PHARMACY MICAFUNGIN 1 EA XX PRN (13:30)
[2025-05-29] MEDS: MICAFUNGIN SODIUM 100 MG in IV NS 0.9% 100 ML IV SCH (15:05)
[2025-05-29] MEDS: ALBUMIN 25% 25 GM in PREMIX 1 EA IV PRN (21:55)
[2025-05-29] MEDS: ALBUMIN 25% 100 ML IV ONE (22:19)
[2025-05-29] MEDS ORDERED: MEROPENEM 0.5 G in IV NS 0.9% 100 ML IV SCH (23:00)
[2025-05-29] MEDS: MEROPENEM 500 MG in IV NS 0.9% 50 ML IV SCH (23:01)
[2025-05-30] VITALS (39 sets, daily range): BP systolic 101–142; BP diastolic 51–94; TEMP 97.6–98; O2SAT 79–99
[2025-05-30] MEDS: DILTIAZEM HCL 50 MG IV IV ONE (00:23)
[2025-05-30] MEDS ORDERED: Calcium Gluconate 0.465 MEQ/ML VIAL IV ONE (10:30)
[2025-05-30] MEDS: SODIUM BICARBONATE SYR 50 MEQ/50 ML DISP.SYRIN IV ONE (10:58)
[2025-05-30] MEDS: DEXTROSE 50%-WATER 50 ML DISP.SYRIN IVP ONE (10:58)
[2025-05-30] MEDS: CALCIUM CHLORIDE 1,000 MG/10 ML DISP.SYRIN IV ONE (10:59)
[2025-05-30] MEDS: INSULIN REGULAR, HUMAN 100 UNIT/ML 10 ML VIAL IV ONE (11:04)
[2025-05-30] MEDS ORDERED: NEPRO 1,000 ML BOTTLE NG SCH (14:00)
[2025-05-30 14:23] LABS: CALCIUM, SERUM 9.1 mg/dL (8.5-10.1); CREATININE 3.9 mg/dL (0.6-1.3); SODIUM SERUM 142.0 mmol/L (136-145)
[2025-05-30] MEDS ORDERED: TRAZODONE 50 MG TABLET NG PRN (14:27)
[2025-05-30 14:30] LABS: PLATELET COUNT (AUTO) 161 K/uL (150-450); RED BLOOD CELL COUNT(AUTO) 3.61 MIL/uL (4.5-6.0); RED CELL DISTRIBUTION WIDTH 15.0 % (11.5-15.0)
[2025-05-30 14:33] LABS: WHITE BLOOD COUNT (AUTO) 43.3 K/uL (4.3-11.0)
[2025-05-30 14:42] LABS: PHOSPHORUS 9.8 mg/dL (2.5-4.9); UREA NITROGEN, BLOOD 137.0 mg/dL (7-18)
[2025-05-30 14:58] LABS: MONOCYTES % (MANUAL) 5 % (0-11.0); NEUTROPHILS % (MANUAL) 95 (42-76); PLATELET ESTIMATE ADEQUATE
[2025-05-30] MEDS: METOPROLOL TARTRATE 25 MG TABLET NG SCH (21:00)
[2025-05-31] VITALS (14 sets, daily range): BP systolic 101–150; BP diastolic 40–62; TEMP 97; O2SAT 52–99
[2025-05-31 05:08] LABS: HEPATITIS B CORE AB, IgM Negative (Negative); HEPATITIS B CORE AB, TOTAL Negative (Negative)
[2025-05-31 05:13] LABS: ASPARTATE AMINOTRANSFERASE 109.0 U/L (15-37); CALCIUM, SERUM 8.1 mg/dL (8.5-10.1); CREATININE 4.1 mg/dL (0.6-1.3); SODIUM SERUM 141.0 mmol/L (136-145); TOTAL PROTEIN, SERUM 5.8 g/dL (6.4-8.2)
[2025-05-31 05:16] LABS: PLATELET COUNT (AUTO) 157 K/uL (150-450); RED BLOOD CELL COUNT(AUTO) 3.85 MIL/uL (4.5-6.0); RED CELL DISTRIBUTION WIDTH 15.3 % (11.5-15.0)
[2025-05-31 05:30] LABS: PHOSPHORUS 10.1 mg/dL (2.5-4.9); UREA NITROGEN, BLOOD 158.0 mg/dL (7-18)
[2025-05-31 05:43] LABS: WHITE BLOOD COUNT (AUTO) 46.2 K/uL (4.3-11.0)
[2025-05-31] MEDS: SODIUM BICARBONATE SYR 50 MEQ/50 ML DISP.SYRIN IV ONE (06:34)
[2025-05-31] MEDS: INSULIN REGULAR, HUMAN 100 UNIT/ML 10 ML VIAL IV ONE (06:34)
[2025-05-31] MEDS: Calcium Gluconate 0.465 MEQ/ML VIAL IV ONE (06:35)
[2025-05-31] MEDS: DEXTROSE 50%-WATER 50 ML DISP.SYRIN IVP ONE (06:35)
[2025-05-31 07:05] LABS: BASOPHILS % (MANUAL) 0 % (0.0-2.0); EOSINOPHILS % (MANUAL) 0 % (0-4); LYMPHOCYTES % (MANUAL) 2 % (16-48); MONOCYTES % (MANUAL) 4 % (0-11.0); NEUTROPHILS % (MANUAL) 94 (42-76); PLATELET ESTIMATE ADEQUATE
[2025-05-31] MEDS: MORPHINE SULFATE PF DRIP 100 MG in IV D5W 96 ML IV PRN (08:48)
[2025-05-31] MEDS ORDERED: LORAZEPAM INJ 2 MG/ML VIAL IV PRN (09:30)
[2025-05-31] MEDS ORDERED: LORAZEPAM 4 MG/ML VIAL IV PRN (09:30)
[2025-05-31] MEDS: LORAZEPAM INJ 2 MG/ML VIAL IV PRN (10:08)
[2025-05-31] MEDS ORDERED: MORPHINE SULFATE PF DRIP 100 MG in IV D5W 96 ML IV PRN (11:00)
[2025-05-31] MEDS: MORPHINE SULFATE INJ 2 MG/ML DISP.SYRIN IV PRN (12:06)
[2025-06-01] MEDS ORDERED: PANTOPRAZOLE 40 MG/PACK PACK NG SCH (09:00)
== END 2025-05-31 13:39 | DRG 870 ==
LOC: ER 07:48 → TELE1 09:16 → TELE-TD 05-16 02:36 → ICU 05-17 08:20
PROVIDERS: ADMIT Internal Medicine; ATTEND Nurse Practitioner Family
PROC: 5A1955Z Respiratory Ventilation, Greater than 96 Consecutive Hours (ICD-10-PCS; principal; 2025-05-27)
PROC: 0BH18EZ Insertion of Endotracheal Airway into Trachea, Via Natural or Artificial Opening Endoscopic (ICD-10-PCS; 2025-05-27)
PROC: 5A1D70Z Performance of Urinary Filtration, Intermittent, Less than 6 Hours Per Day (ICD-10-PCS; 2025-05-29)
PROC: 05HM33Z Insertion of Infusion Device into Right Internal Jugular Vein, Percutaneous Approach (ICD-10-PCS; 2025-05-29)
PROC: B543ZZA Ultrasonography of Right Jugular Veins, Guidance (ICD-10-PCS; 2025-05-29)
DX: A41.9 Sepsis, unspecified organism (principal); I21.A1 Myocardial infarction type 2; J96.01 Acute respiratory failure with hypoxia; R65.21 Severe sepsis with septic shock; J15.9 Unspecified bacterial pneumonia; N17.9 Acute kidney failure, unspecified; I50.32 Chronic diastolic (congestive) heart failure; K56.1 Intussusception; Z99.11 Dependence on respirator [ventilator] status; E84.9 Cystic fibrosis, unspecified; E87.20 Acidosis, unspecified; E87.1 Hypo-osmolality and hyponatremia; E87.0 Hyperosmolality and hypernatremia; G93.40 Encephalopathy, unspecified; K92.2 Gastrointestinal hemorrhage, unspecified; J84.9 Interstitial pulmonary disease, unspecified; J93.9 Pneumothorax, unspecified; Z66 Do not resuscitate; Z51.5 Encounter for palliative care; I11.0 Hypertensive heart disease with heart failure; J84.112 Idiopathic pulmonary fibrosis; M89.8X9 Other specified disorders of bone, unspecified site; N40.1 Benign prostatic hyperplasia with lower urinary tract symptoms; R33.8 Other retention of urine; Z99.2 Dependence on renal dialysis; Z95.0 Presence of cardiac pacemaker; Z87.891 Personal history of nicotine dependence; Z79.01 Long term (current) use of anticoagulants; D64.9 Anemia, unspecified; Z20.822 Contact with and (suspected) exposure to COVID-19; T50.2X5A Adverse effect of carbonic-anhydrase inhibitors, benzothiadiazides and other diuretics, initial encounter; Y92.9 Unspecified place or not applicable; Z86.79 Personal history of other diseases of the circulatory system; I48.0 Paroxysmal atrial fibrillation; E87.5 Hyperkalemia; T38.0X5A Adverse effect of glucocorticoids and synthetic analogues, initial encounter; W19.XXXA Unspecified fall, initial encounter; Y92.009 Unspecified place in unspecified non-institutional (private) residence as the place of occurrence of the external cause; S50.312A Abrasion of left elbow, initial encounter
CPT/HCPCS: 31720; 36415; 36600; 70450-TC; 70496-TC; 70498-TC; 71045-TC; 71250-TC; 74018; 74178; 76770-TC; 80048-TC; 80053-TC; 80061-TC; 80076-TC; 80202-TC; 81001; 82550-TC; 82570-TC; 82803-TC; 82962-TC; 83605-TC; 83735-TC; 83880; 83935-TC; 84100-TC; 84300-TC; 84443-TC; 84478-TC; 84484-TC; 84550-TC; 85025-TC; 85027-TC; 85730-TC; 86200; 86225; 86235; 86431-TC; 86704; 86705; 86707; 86803; 86850-TC; 87040-TC; 87070-TC; 87081-TC; 87086-TC; 87205-TC; 87350; 87806; 87899; 90935-TC; 92526; 92611-TC; 93307-TC; 93970-TC; 94002-TC; 94003-TC; 94640-TC; 94760-TC; 94799-TC; 99082-TC; A4216; A4223; A6253; A6403; C1752; G0378; J0282; J0360; J0456; J0612; J0692; J0696; J1644; J1650; J1815; J1938; J2060; J2185; J2248; J2270; J2274; J2470; J2919; J3010; J3373; J3374; J3490; J7030; J7040; J7050; J7060; P9045; P9047; Q9963; Q9967